=== PATIENT | female | born 1945 | race Caucasian/White ===

== ENCOUNTER → 2020-10-26 | Outpatient (CLI) | payer MEDICARE, OTHER | LOC: CT 11:30 | DX: I82.412 Acute embolism and thrombosis of left femoral vein (principal); I73.9 Peripheral vascular disease, unspecified; I65.23 Occlusion and stenosis of bilateral carotid arteries; K44.9 Diaphragmatic hernia without obstruction or gangrene; K57.90 Diverticulosis of intestine, part unspecified, without perforation or abscess without bleeding | CPT/HCPCS: 36415; 82565; 93880; 93970; Q9965 ==